=== PATIENT | male | born 1955 | race African-American/Black ===

== ENCOUNTER 2025-04-15 18:15 | Inpatient (IN) | payer MEDICARE, MEDICAID ==
[~2025-04-15] VITALS: Ht 182.9 cm; Wt 79.4 kg
[~2025-04-15 18:15] MED LIST: ABIR250T PO; ACET-2708 MT; APIX5TAB MT; ASPI-1497 MT; ATOR-2 MT; ATROV INH; BACL-141 PO; CLON0.1T MT; DICL100G58 TP; FAMO-135 MT; GABA-290 MT; HYDR12.54 MT; LEVO-65 MT; MULT-1146 MT; SENN-371 MT; VALS160T28 MT
[2025-04-15 20:37] LABS: BASOPHILS % 1.1 % (0.0-2.0); DIFFERENTIAL COMMENT 0; EOSINOPHILS % 2.1 % (0.0-5.0); HEMATOCRIT. 36.3 % (42.0-52.0); HEMOGLOBIN. 11.6 g/dL (14.0-18.0); LYMPHOCYTES % 9.8 % (20.0-50.0); MEAN CORPUSCULAR HEMOGLOBIN 24.1 pg (28.0-32.0); MEAN CORPUSCULAR HGB CONC 31.9 g/dL (31.0-37.0); MEAN CORPUSCULAR VOLUME 75.3 fL (80.0-94.0); MEAN PLATELET VOLUME 8.8 fl (7.4-10.4); MONOCYTES % 2.5 % (2.0-8.0); NEUTROPHILS % 84.5 % (40.0-76.0); PLATELET 416 x1000/uL (130-400); RED BLOOD CELL COUNT 4.82 mill/uL (4.7-6.1); RED CELL DISTRIBUTION WIDTH 17.5 % (11.6-14.6); WHITE BLOOD COUNT 13.8 x1000/uL (4.5-11.0)
[2025-04-15] MEDS: PIPERACILLIN/TAZO 3.375G/50ML 50 ML IV ONE (20:39)
[2025-04-15] MEDS: SODIUM CHLORIDE 0.9% (SEPSIS BOLUS) IV ONE (20:39)
[2025-04-15 20:44] LABS: CHLORIDE 105 mEq/L (98-107); POTASSIUM 3.5 mEq/L (3.5-5.1); SODIUM 139 mEq/L (136-145)
[2025-04-15 20:45] LABS: CALCIUM 9.9 mg/dL (8.7-10.4); CARBON DIOXIDE 26 mEq/L (21-32)
[2025-04-15 20:47] LABS: INR 1.1; PROTHROMBIN TIME 11.8 sec (9.6-11.0)
[2025-04-15 20:50] LABS: GLUCOSE 163 mg/dL (70-105); UREA NITROGEN BLOOD 23 mg/dL (9-23)
[2025-04-15 20:52] LABS: ALANINE AMINOTRANSFERASE 9 IU/L (10-49); ALBUMIN 4.1 g/dL (3.2-4.8); ASPARTATE AMINOTRANSFERASE 14 IU/L (<34); BILIRUBIN DIRECT 0.2 mg/dL (<=3.0); BILIRUBIN TOTAL 0.4 mg/dL (0.1-1.0); PROTEIN TOTAL 8.1 g/dL (6.0-8.3)
[2025-04-15 20:55] LABS: CREATININE 1.7 mg/dL (0.6-1.3)
[2025-04-15 21:02] LABS: LACTIC ACID 2.8 mmol/L (0.4-2.0)
[2025-04-15] MEDS ORDERED: ACETAMINOPHEN 1000MG/100ML 100 ML IV SCH (21:15)
[2025-04-15] MEDS: MORPHINE SULFATE 4 MG/ML INJ (FOR IV/IM USE) IV SCH (21:20)
[2025-04-15] MEDS: GABAPENTIN 300MG CAPSULE PO SCH (21:30)
[2025-04-15] MEDS: METRONIDAZOLE 500 MG PREMIX 100 ML IV ONE (22:08)
[2025-04-16] VITALS (69 sets, daily range): BP systolic 55–151; BP diastolic 29–103; PULSE 87–127; RESP 11–29; TEMP 36.5–38.9; O2SAT 93–100
[2025-04-16] MEDS ORDERED: MORPHINE SULFATE 2 MG/ML INJ (NOT FOR IM USE) IV PRN (00:45)
[2025-04-16] MEDS: METOCLOPRAMIDE HCL 10MG/2ML VIAL IV SCH (00:55)
[2025-04-16] MEDS: SODIUM CHLORIDE 0.9% 1,000 ML IV NR (00:57)
[2025-04-16] MEDS ORDERED: ACETAMINOPHEN 325MG TABLET PO PRN (01:00)
[2025-04-16] MEDS ORDERED: NALOXONE HCL 0.4MG/ML VIAL IV PRN ×2 (01:00)
[2025-04-16] MEDS ORDERED: DOCUSATE SODIUM 100MG CAPSULE PO PRN (01:00)
[2025-04-16] MEDS ORDERED: MAGNESIUM/ALUMINUM HYDROXIDE/SIMETHICONE 30ML UDC PO PRN (01:00)
[2025-04-16] MEDS: MIDODRINE HCL 5MG TABLET PO SCH (01:22)
[2025-04-16] MEDS: MORPHINE SULFATE 4 MG/ML INJ (FOR IV/IM USE) IV PRN (03:44)
[2025-04-16] MEDS: DEXT 5%/0.45% NACL 1000ML 1,000 ML IV SCH (03:55)
[2025-04-16] MEDS ORDERED: GABA-1180 PO (04:45)
[2025-04-16] MEDS ORDERED: MSCON15 PO (04:45)
[2025-04-16] MEDS ORDERED: GLIP5TAB22 PO (04:45)
[2025-04-16] MEDS ORDERED: [UNRECOGNIZED DRUG - CODE] PO (04:45)
[2025-04-16] MEDS ORDERED: HYDR-4009 PO (04:45)
[2025-04-16] MEDS ORDERED: ACETAMINOPHEN 1000MG/100ML 100 ML IV ONE (05:15)
[2025-04-16] MEDS: ACETAMINOPHEN 1000MG/100ML 100 ML IV NR (05:23)
[2025-04-16 06:17] LABS: BASOPHILS % 1.5 % (0.0-2.0); DIFFERENTIAL COMMENT 0; EOSINOPHILS % 1.3 % (0.0-5.0); HEMATOCRIT. 33.7 % (42.0-52.0); HEMOGLOBIN. 10.9 g/dL (14.0-18.0); LYMPHOCYTES % 15.9 % (20.0-50.0); MEAN CORPUSCULAR HEMOGLOBIN 24.2 pg (28.0-32.0); MEAN CORPUSCULAR HGB CONC 32.3 g/dL (31.0-37.0); MEAN CORPUSCULAR VOLUME 74.9 fL (80.0-94.0); MEAN PLATELET VOLUME 9.1 fl (7.4-10.4); MONOCYTES % 9.9 % (2.0-8.0); NEUTROPHILS % 71.4 % (40.0-76.0); PLATELET 333 x1000/uL (130-400); RED CELL DISTRIBUTION WIDTH 17.1 % (11.6-14.6); WHITE BLOOD COUNT 9.4 x1000/uL (4.5-11.0)
[2025-04-16 06:38] LABS: CHLORIDE 103 mEq/L (98-107); POTASSIUM 3.2 mEq/L (3.5-5.1); SODIUM 136 mEq/L (136-145)
[2025-04-16 06:39] LABS: CALCIUM 8.7 mg/dL (8.7-10.4); CARBON DIOXIDE 22 mEq/L (21-32)
[2025-04-16 06:44] LABS: CREATININE 1.7 mg/dL (0.6-1.3); GLUCOSE 140 mg/dL (70-105); TRIGLYCERIDE 76 mg/dL (0-150); UREA NITROGEN BLOOD 24 mg/dL (9-23)
[2025-04-16 06:45] LABS: LDL CHOLESTEROL 30 mg/dL (5-100)
[2025-04-16 06:46] LABS: CHOLESTEROL 72 mg/dL (<200); HDL CHOLESTEROL 25 mg/dL (>55); T4 FREE 0.96 ng/dL (0.89-1.76)
[2025-04-16 06:47] LABS: THYROID STIMULATING HORMONE 1.18 uIU/mL (0.55-4.78)
[2025-04-16 06:48] LABS: IRON 17 ug/dL (65-175)
[2025-04-16] MEDS: NOREPINEPHRINE 8MG/250ML PMX 250 ML IV PRN (07:09)
[2025-04-16 07:21] LABS: TOTAL IRON BINDING CAPACITY 394 ug/dl (250-425)
[2025-04-16] MEDS ORDERED: VASOPRESSIN 20 UNIT in SODIUM CHLORIDE 0.9% 99 ML IV PRN (07:30)
[2025-04-16] MEDS: ASPIRIN 81MG TABLET PO SCH (08:14)
[2025-04-16] MEDS: GABAPENTIN 300MG CAPSULE PO SCH (08:14)
[2025-04-16] MEDS: ACETAMINOPHEN 325MG TABLET PO PRN (08:15)
[2025-04-16] MEDS: ENOXAPARIN 40MG/0.4ML SYR SUBCUT SCH (08:15)
[2025-04-16] MEDS: PIPERACILLIN/TAZO 3.375G/50ML 50 ML IV SCH (08:17)
[2025-04-16] MEDS ORDERED: MIDODRINE HCL 5MG TABLET PO SCH (09:00)
[2025-04-16] MEDS: PNEUMOCOCCAL 20-VAL CONJ-DIP CRM 0.5ML IM ONE (09:10)
[2025-04-16] MEDS: KCL 20MEQ/100ML PREMIX 100 ML IV SCH (11:40)
[2025-04-16 12:26] LABS: PHOSPHORUS 4.2 mg/dL (2.5-4.9)
[2025-04-16] MEDS: VANCOMYCIN 1.5GM/250ML IV SCH (14:25)
[2025-04-16] MEDS ORDERED: ESCI-7 MT (17:18)
[2025-04-16] MEDS: ATORVASTATIN CALCIUM 40MG TABLET PO SCH (21:32)
[2025-04-17] VITALS (45 sets, daily range): BP systolic 83–149; BP diastolic 39–137; PULSE 81–111; RESP 10–27; TEMP 36.4–36.8; O2SAT 97–100
[2025-04-17 05:50] LABS: HEMATOCRIT 28.8 % (42.0-52.0); HEMOGLOBIN 9.3 g/dL (14.0-18.0); MEAN CORPUSCULAR HGB CONC 32.3 g/dL (31.0-37.0); MEAN CORPUSCULAR VOLUME 74.5 fL (80.0-94.0); PLATELET 253 x1000/uL (130-400); RED BLOOD CELL COUNT 3.86 mill/uL (4.7-6.1); RED CELL DISTRIBUTION WIDTH 17.1 % (11.6-14.6); WHITE BLOOD COUNT 14.1 x1000/uL (4.5-11.0)
[2025-04-17 06:04] LABS: CHLORIDE 109 mEq/L (98-107); SODIUM 137 mEq/L (136-145)
[2025-04-17 06:05] LABS: CARBON DIOXIDE 23 mEq/L (21-32)
[2025-04-17 06:06] LABS: CALCIUM 8.6 mg/dL (8.7-10.4)
[2025-04-17 06:10] LABS: GLUCOSE 155 mg/dL (70-105)
[2025-04-17 06:11] LABS: UREA NITROGEN BLOOD 15 mg/dL (9-23)
[2025-04-17 06:13] LABS: PHOSPHORUS 1.9 mg/dL (2.5-4.9)
[2025-04-17 06:44] LABS: POTASSIUM 2.8 mEq/L (3.5-5.1)
[2025-04-17] MEDS: POTASSIUM CHLORIDE 20MEQ TABLET SR PO NR (08:55)
[2025-04-17] MEDS: MAGNESIUM OXIDE 400MG TABLET PO SCH (08:55)
[2025-04-17] MEDS: POTASSIUM PHOSPHATE 30 MMOL in DEXT 5% WATER 490 ML IV NR (09:10)
[2025-04-17] MEDS: MAGNESIUM 2 G PREMIX 50 ML IV NR (11:43)
[2025-04-17] MEDS: MORPHINE SULFATE 4 MG/ML INJ (FOR IV/IM USE) IV PRN (11:43)
[2025-04-17] MEDS: VANCOMYCIN 1G PREMIX 200 ML IV SCH (11:44)
[2025-04-17 12:27] LABS: POTASSIUM 3.2 mEq/L (3.5-5.1)
[2025-04-17] MEDS: GABAPENTIN 300MG CAPSULE PO SCH (14:02)
[2025-04-17] MEDS: LACTATED RINGERS 1,000 ML IV SCH (14:02)
[2025-04-17] MEDS ORDERED: *PATIENT'S OWN MEDICATION STORAGE XX SCH (15:30)
[2025-04-17] MEDS: VANCOMYCIN PR SCH (18:00)
[2025-04-17] MEDS: NS PR SCH (18:00)
[2025-04-17] MEDS: VANCOMYCIN 125MG/2.5ML ORAL SYR PO SCH (18:00)
[2025-04-17] MEDS: HYDROCODONE/ACETAMINOPHEN 5/325MG TABLET PO PRN (22:42)
[2025-04-18] VITALS: BP 122/71; PULSE 80; RESP 18; TEMP 36.4; O2SAT 97
[2025-04-18 04:00] VITALS: BP 158/68; PULSE 80; RESP 17; TEMP 36.1; O2SAT 95
[2025-04-18 06:43] LABS: CARBON DIOXIDE 25 mEq/L (21-32); CHLORIDE 109 mEq/L (98-107); POTASSIUM 3.4 mEq/L (3.5-5.1); SODIUM 139 mEq/L (136-145)
[2025-04-18 06:44] LABS: CALCIUM 9.4 mg/dL (8.7-10.4)
[2025-04-18 06:48] LABS: DIFFERENTIAL COMMENT 0; EOSINOPHILS % 4.1 % (0.0-5.0); HEMATOCRIT 31.6 % (42.0-52.0); HEMATOCRIT. 31.6 % (42.0-52.0); HEMOGLOBIN 10.1 g/dL (14.0-18.0); HEMOGLOBIN. 10.1 g/dL (14.0-18.0); LYMPHOCYTES % 11.8 % (20.0-50.0); MEAN CORPUSCULAR HEMOGLOBIN 23.7 pg (28.0-32.0); MEAN CORPUSCULAR HGB CONC 31.9 g/dL (31.0-37.0); MEAN CORPUSCULAR VOLUME 74.3 fL (80.0-94.0); MEAN PLATELET VOLUME 9.4 fl (7.4-10.4); MONOCYTES % 5.5 % (2.0-8.0); NEUTROPHILS % 77.6 % (40.0-76.0); PLATELET 233 x1000/uL (130-400); RED BLOOD CELL COUNT 4.25 mill/uL (4.7-6.1); RED CELL DISTRIBUTION WIDTH 17.6 % (11.6-14.6); WHITE BLOOD COUNT 11.4 x1000/uL (4.5-11.0)
[2025-04-18 06:49] LABS: CREATININE 0.7 mg/dL (0.6-1.3); GLUCOSE 121 mg/dL (70-105); UREA NITROGEN BLOOD 5 mg/dL (9-23)
[2025-04-18 06:51] LABS: PHOSPHORUS 1.6 mg/dL (2.5-4.9)
[2025-04-18 08:00] VITALS: BP 150/92; PULSE 65; RESP 17; TEMP 36.6; O2SAT 97
[2025-04-18] MEDS: CITALOPRAM HYDROBROMIDE 10MG TABLET PO SCH (09:44)
[2025-04-18] MEDS: PANTOPRAZOLE SODIUM 40 MG/VIAL IV SCH (09:44)
[2025-04-18 12:00] VITALS: BP 128/60; PULSE 84; RESP 19; TEMP 36.2; O2SAT 92
[2025-04-18] MEDS: POTASSIUM PHOSPHATE 30 MMOL in DEXT 5% WATER 490 ML IV SCH (12:52)
[2025-04-18] MEDS ORDERED: NON FORMULARY MED XX SCH (13:45)
[2025-04-18] MEDS: IRON SUCROSE COMPLEX 100 MG/5 ML ML IV SCH (15:15)
[2025-04-18 16:00] VITALS: BP 126/47; PULSE 83; RESP 18; TEMP 35.9; O2SAT 96
[2025-04-18] MEDS ORDERED: POTASSIUM CHLORIDE 20 MEQ in DEXT 5% WATER 90 ML IV ONE (18:00)
[2025-04-18] MEDS ORDERED: KCL 20MEQ/100ML PREMIX 100 ML IV SCH (18:30)
[2025-04-18 20:00] VITALS: BP 95/56; PULSE 97; RESP 18; TEMP 35.8; O2SAT 97
[2025-04-18] MEDS ORDERED: POTASSIUM PHOSPHATE 10 MMOL in DEXT 5% WATER 246.6667 ML IV SCH (20:00)
[2025-04-18 20:29] LABS: HEMATOCRIT 34.6 % (42.0-52.0); HEMOGLOBIN 10.8 g/dL (14.0-18.0); MEAN CORPUSCULAR HEMOGLOBIN 23.7 pg (28.0-32.0); MEAN CORPUSCULAR HGB CONC 31.1 g/dL (31.0-37.0); MEAN CORPUSCULAR VOLUME 76.1 fL (80.0-94.0); PLATELET 229 x1000/uL (130-400); RED BLOOD CELL COUNT 4.54 mill/uL (4.7-6.1); RED CELL DISTRIBUTION WIDTH 17.6 % (11.6-14.6); WHITE BLOOD COUNT 10.3 x1000/uL (4.5-11.0)
[2025-04-18 20:33] LABS: CHLORIDE 105 mEq/L (98-107); POTASSIUM 3.4 mEq/L (3.5-5.1); SODIUM 136 mEq/L (136-145)
[2025-04-18 20:34] LABS: CARBON DIOXIDE 20 mEq/L (21-32)
[2025-04-18 20:39] LABS: GLUCOSE 141 mg/dL (70-105); UREA NITROGEN BLOOD < 5 mg/dL (9-23)
[2025-04-18] MEDS ORDERED: VANCOMYCIN 750MG PMX (XELLIA) 150 ML IV SCH (21:00)
[2025-04-19] VITALS: BP 114/66; PULSE 81; TEMP 36.3
[2025-04-19 04:00] VITALS: BP 101/67; PULSE 80; RESP 18; TEMP 36.4; O2SAT 98
[2025-04-19 06:57] LABS: BASOPHILS % 2.4 % (0.0-2.0); DIFFERENTIAL COMMENT 0; EOSINOPHILS % 8.5 % (0.0-5.0); HEMATOCRIT. 30.2 % (42.0-52.0); HEMOGLOBIN. 9.8 g/dL (14.0-18.0); LYMPHOCYTES % 19.1 % (20.0-50.0); MEAN CORPUSCULAR HGB CONC 32.5 g/dL (31.0-37.0); MEAN PLATELET VOLUME 9.4 fl (7.4-10.4); MONOCYTES % 7.7 % (2.0-8.0); NEUTROPHILS % 62.3 % (40.0-76.0); PLATELET 230 x1000/uL (130-400); RED BLOOD CELL COUNT 4.08 mill/uL (4.7-6.1); RED CELL DISTRIBUTION WIDTH 17.2 % (11.6-14.6); WHITE BLOOD COUNT 8.7 x1000/uL (4.5-11.0)
[2025-04-19 07:01] LABS: CHLORIDE 110 mEq/L (98-107); POTASSIUM 3.2 mEq/L (3.5-5.1); SODIUM 141 mEq/L (136-145)
[2025-04-19 07:02] LABS: CALCIUM 9.1 mg/dL (8.7-10.4); CARBON DIOXIDE 24 mEq/L (21-32)
[2025-04-19 07:07] LABS: GLUCOSE 109 mg/dL (70-105); UREA NITROGEN BLOOD 6 mg/dL (9-23)
[2025-04-19 07:09] LABS: PHOSPHORUS 3.5 mg/dL (2.5-4.9)
[2025-04-19 07:17] LABS: CREATININE 1.5 mg/dL (0.6-1.3)
[2025-04-19 08:00] VITALS: BP 119/62; PULSE 89; RESP 17; TEMP 36.3; O2SAT 98
[2025-04-19] MEDS: POTASSIUM CHLORIDE 20MEQ/PACKET PO SCH (08:48)
[2025-04-19 12:00] VITALS: BP 119/62; PULSE 88; RESP 18; TEMP 36.3
[2025-04-19 16:00] VITALS: BP 145/67; PULSE 85; RESP 18; TEMP 36.7; O2SAT 98
[2025-04-19] MEDS ORDERED: NALOXONE HCL 0.4MG/ML VIAL IV PRN (19:45)
[2025-04-19 20:00] VITALS: BP 151/80; PULSE 83; RESP 18; TEMP 35.3; O2SAT 97
[2025-04-19 20:36] LABS: HEMATOCRIT 32.8 % (42.0-52.0); HEMOGLOBIN 10.4 g/dL (14.0-18.0); MEAN CORPUSCULAR HEMOGLOBIN 23.7 pg (28.0-32.0); MEAN CORPUSCULAR HGB CONC 31.6 g/dL (31.0-37.0); MEAN CORPUSCULAR VOLUME 74.9 fL (80.0-94.0); PLATELET 252 x1000/uL (130-400); RED BLOOD CELL COUNT 4.38 mill/uL (4.7-6.1); RED CELL DISTRIBUTION WIDTH 17.5 % (11.6-14.6); WHITE BLOOD COUNT 8.5 x1000/uL (4.5-11.0)
[2025-04-19 20:41] LABS: POTASSIUM 4.1 mEq/L (3.5-5.1)
[2025-04-19 20:43] LABS: CALCIUM 9.1 mg/dL (8.7-10.4)
[2025-04-19 21:02] LABS: CREATININE 2.1 mg/dL (0.6-1.3)
[2025-04-20 04:00] VITALS: BP 184/84; PULSE 87; RESP 18; TEMP 36.7; O2SAT 96
[2025-04-20 06:36] LABS: BASOPHILS % 3.1 % (0.0-2.0); DIFFERENTIAL COMMENT 0; EOSINOPHILS % 11.2 % (0.0-5.0); HEMATOCRIT. 30.2 % (42.0-52.0); HEMOGLOBIN. 9.7 g/dL (14.0-18.0); LYMPHOCYTES % 23.7 % (20.0-50.0); MEAN CORPUSCULAR HEMOGLOBIN 23.9 pg (28.0-32.0); MEAN CORPUSCULAR VOLUME 74.7 fL (80.0-94.0); MEAN PLATELET VOLUME 9.2 fl (7.4-10.4); MONOCYTES % 9.5 % (2.0-8.0); NEUTROPHILS % 52.5 % (40.0-76.0); PLATELET 230 x1000/uL (130-400); RED BLOOD CELL COUNT 4.04 mill/uL (4.7-6.1); RED CELL DISTRIBUTION WIDTH 17.4 % (11.6-14.6); WHITE BLOOD COUNT 7.6 x1000/uL (4.5-11.0)
[2025-04-20] MEDS: CLONIDINE 0.1MG TABLET PO PRN (06:36)
[2025-04-20 07:00] LABS: POTASSIUM 4.1 mEq/L (3.5-5.1)
[2025-04-20 07:06] LABS: CREATININE 2.2 mg/dL (0.6-1.3)
[2025-04-20 08:00] VITALS: BP 122/56; PULSE 70; RESP 18; TEMP 36.1; O2SAT 96
[2025-04-20 11:47] LABS: CLARITY URINE CLEAR (CLEAR); COLOR URINE YELLOW (YELLOW); GLUCOSE URINE NEGATIVE (NEGATIVE); KETONES URINE NEGATIVE (NEGATIVE); LEUKOCYTE ESTERASE URINE NEGATIVE (NEGATIVE); NITRITE URINE NEGATIVE (NEGATIVE); OCCULT BLOOD URINE NEGATIVE (NEGATIVE); PROTEIN URINE NEGATIVE (NEGATIVE); SPECIFIC GRAVITY URINE 1.005 (1.005-1.030); UROBILINOGEN URINE 0.2 E.U./dL (0.2-1.0)
[2025-04-20 12:00] VITALS: BP 127/74; PULSE 83; RESP 18; TEMP 36.4; O2SAT 96
[2025-04-20] MEDS: FAMOTIDINE 20MG/2ML VIAL IV SCH (12:39)
[2025-04-20 15:28] VITALS: PULSE 70; RESP 18
[2025-04-20] MEDS: IPRATROPIUM/ALBUTEROL 0.5-3(2.5)MG/3ML NEB HHN PRN (15:28)
[2025-04-20 16:00] VITALS: BP 141/71; PULSE 72; RESP 18; TEMP 36.3; O2SAT 98
[2025-04-20 18:45] LABS: CREATINE KINASE 57 IU/L (46-171)
[2025-04-20 20:00] VITALS: BP 163/73; PULSE 70; RESP 18; TEMP 36.5; O2SAT 99
[2025-04-21 06:54] LABS: HEMATOCRIT. 26.8 % (42.0-52.0); HEMOGLOBIN. 8.8 g/dL (14.0-18.0); MEAN CORPUSCULAR HEMOGLOBIN 24.3 pg (28.0-32.0); MEAN CORPUSCULAR HGB CONC 32.7 g/dL (31.0-37.0); MEAN CORPUSCULAR VOLUME 74.2 fL (80.0-94.0); PLATELET 210 x1000/uL (130-400); RED BLOOD CELL COUNT 3.61 mill/uL (4.7-6.1); RED CELL DISTRIBUTION WIDTH 17.8 % (11.6-14.6); WHITE BLOOD COUNT 6.8 x1000/uL (4.5-11.0)
[2025-04-21 06:56] LABS: DIFFERENTIAL COMMENT 1
[2025-04-21 07:02] LABS: CALCIUM 8.9 mg/dL (8.7-10.4); POTASSIUM 4.4 mEq/L (3.5-5.1)
[2025-04-21 07:08] LABS: CREATININE 2.4 mg/dL (0.6-1.3)
[2025-04-21 08:00] VITALS: BP 149/70; PULSE 68; RESP 18; TEMP 36.3; O2SAT 97
[2025-04-21 08:20] LABS: PLATELET ESTIMATE NORMAL
[2025-04-21 08:21] LABS: ANISOCYTOSIS 1+
[2025-04-21 12:00] VITALS: BP 166/51; PULSE 66; RESP 18; TEMP 36.3; O2SAT 97
[2025-04-21] MEDS ORDERED: LIP40 PO (15:19)
[2025-04-21] MEDS ORDERED: ASPI-1160 PO (15:19)
[2025-04-21] MEDS ORDERED: GABA-1180 PO (15:19)
[2025-04-21] MEDS ORDERED: VANJ5 PO (15:19)
[2025-04-21] MEDS ORDERED: CITA10TA16 PO (15:19)
[2025-04-21 16:00] VITALS: BP 169/76; PULSE 77; RESP 18; TEMP 36.3; O2SAT 100
[2025-04-21] MEDS: SODIUM CHLORIDE 0.45% 1,000 ML IV SCH (16:33)
[2025-04-21 20:00] VITALS: BP 151/101; PULSE 101; RESP 18; TEMP 36.7; O2SAT 100
[2025-04-21] MEDS: CLONIDINE 0.1MG TABLET PO NR (23:24)
[2025-04-22] VITALS (7 sets, daily range): BP systolic 126–164; BP diastolic 59–80; PULSE 58–69; RESP 16–18; TEMP 36.3–36.9; O2SAT 94–99
[2025-04-22] MEDS: GUAIFENESIN 200MG/10ML SUGAR FREE UDC PO PRN (08:39)
[2025-04-22 12:37] LABS: CREATINE KINASE 47 IU/L (46-171)
[2025-04-24 10:07] LABS: COMPLEMENT C3 133 mg/dL (82-167); COMPLEMENT C4 17 mg/dL (12-38)
[2025-04-26 15:10] LABS: ANTI-NUCLEAR ANTIBODIES DIRECT Negative (Negative)
== END 2025-04-22 14:45 | DRG 871 ==
LOC: ER 18:15 → EDBEDREQ 20:43 → 5WST 21:54 → EDBEDREQ 21:57 → ENRESERV 22:08 → CVICU 04-16 06:25 → 5WST 04-17 15:13
PROVIDERS: ADMIT Hospitalist; ATTEND Hospitalist
PROC: 05HY33Z Insertion of Infusion Device into Upper Vein, Percutaneous Approach (ICD-10-PCS; principal; 2025-04-16)
PROC: B54MZZA Ultrasonography of Right Upper Extremity Veins, Guidance (ICD-10-PCS; 2025-04-16)
DX: A41.9 Sepsis, unspecified organism (principal); J96.01 Acute respiratory failure with hypoxia; N17.0 Acute kidney failure with tubular necrosis; R65.21 Severe sepsis with septic shock; C79.51 Secondary malignant neoplasm of bone; E87.20 Acidosis, unspecified; G82.20 Paraplegia, unspecified; M48.56XA Collapsed vertebra, not elsewhere classified, lumbar region, initial encounter for fracture; M79.605 Pain in left leg; M79.604 Pain in right leg; C61 Malignant neoplasm of prostate; K21.9 Gastro-esophageal reflux disease without esophagitis; D50.9 Iron deficiency anemia, unspecified; G89.4 Chronic pain syndrome; I10 Essential (primary) hypertension; K52.9 Noninfective gastroenteritis and colitis, unspecified; E87.6 Hypokalemia; E86.0 Dehydration; E83.39 Other disorders of phosphorus metabolism; F32.A Depression, unspecified; E78.00 Pure hypercholesterolemia, unspecified; R73.9 Hyperglycemia, unspecified; G89.3 Neoplasm related pain (acute) (chronic); E83.42 Hypomagnesemia; R53.81 Other malaise; R26.9 Unspecified abnormalities of gait and mobility; Z88.1 Allergy status to other antibiotic agents; Z79.01 Long term (current) use of anticoagulants; Z79.82 Long term (current) use of aspirin; Z79.899 Other long term (current) drug therapy; Z85.07 Personal history of malignant neoplasm of pancreas; Z86.73 Personal history of transient ischemic attack (TIA), and cerebral infarction without residual deficits; Z87.891 Personal history of nicotine dependence
CPT/HCPCS: 36415; 36573; 71045; 74176; 76770; 80048; 80061; 80076; 80202; 81003; 82270; 82550; 82962; 83540; 83550; 83605; 83735; 84100; 84132; 84145; 84153; 84439; 84443; 85025; 85027; 86038; 86160; 87015; 87045; 87427; 87449; 87493; 93005; 93970; 94070; 94640; 97110; 97116; 97163; 97166; 97530; 97535; 99285; A4606; A6449; C1725; J1308; J1650; J2270; J2310; J2470; J2543; J2765; J3370; J3475; J3480; J3490; J7030; J7060; J7120; J0131

== ENCOUNTER 2025-04-22 14:53 | Inpatient (IN) | payer MEDICARE, MEDICAID ==
[~2025-04-22] VITALS: Ht 182.9 cm; Wt 82.3 kg
[~2025-04-22 14:53] MED LIST changes: -ABIR250T PO; -ACET-2708 MT; +ASPI-1160 PO; -ATROV INH; +CITA10TA16 PO; -CLON0.1T MT; +GABA-1180 PO; -GABA-290 MT; +GLIP5TAB22 PO; +HYDR-4009 PO; -LEVO-65 MT; +LIP40 PO; +MSCON15 PO; +VANJ5 PO; +[UNRECOGNIZED DRUG - CODE] PO
[2025-04-22] MEDS ORDERED: ACETAMINOPHEN 650MG/20.3ML UDC PO PRN (16:15)
[2025-04-22] MEDS ORDERED: MAGNESIUM/ALUMINUM HYDROXIDE/SIMETHICONE 30ML UDC PO PRN (16:15)
[2025-04-22 16:48] VITALS: BP 146/55; PULSE 64; RESP 18; TEMP 35.9
[2025-04-22] MEDS ORDERED: *PATIENT'S OWN MEDICATION STORAGE XX SCH (17:15)
[2025-04-22] MEDS: SODIUM CHLORIDE 0.45% 1,000 ML IV SCH (18:31)
[2025-04-22] MEDS: VANCOMYCIN 125MG/2.5ML ORAL SYR PO SCH (18:33)
[2025-04-22] MEDS: ACETAMINOPHEN 325MG TABLET PO PRN (18:34)
[2025-04-22 20:00] VITALS: BP 151/67; PULSE 78; RESP 18; TEMP 35.6; O2SAT 99
[2025-04-22] MEDS: ATORVASTATIN CALCIUM 40MG TABLET PO SCH (21:18)
[2025-04-22] MEDS: GABAPENTIN 300MG CAPSULE PO SCH (21:19)
[2025-04-22] MEDS ORDERED: NALOXONE HCL 0.4MG/ML VIAL IV PRN (21:30)
[2025-04-22] MEDS: HYDROCODONE/ACETAMINOPHEN 5/325MG TABLET PO PRN (21:35)
[2025-04-23] MEDS: GUAIFENESIN 200MG/10ML SUGAR FREE UDC PO PRN (03:16)
[2025-04-23] MEDS: VANCOMYCIN 125MG/2.5ML ORAL SYR PO SCH (06:03)
[2025-04-23 07:45] LABS: HEMATOCRIT. 26.2 % (42.0-52.0); HEMOGLOBIN. 8.6 g/dL (14.0-18.0); MEAN CORPUSCULAR HEMOGLOBIN 24.5 pg (28.0-32.0); MEAN CORPUSCULAR HGB CONC 32.7 g/dL (31.0-37.0); MEAN CORPUSCULAR VOLUME 74.9 fL (80.0-94.0); MEAN PLATELET VOLUME 8.3 fl (7.4-10.4); PLATELET 246 x1000/uL (130-400); RED BLOOD CELL COUNT 3.49 mill/uL (4.7-6.1); RED CELL DISTRIBUTION WIDTH 17.3 % (11.6-14.6); WHITE BLOOD COUNT 6.4 x1000/uL (4.5-11.0)
[2025-04-23 07:51] LABS: CHLORIDE 109 mEq/L (98-107); POTASSIUM 4.1 mEq/L (3.5-5.1); SODIUM 142 mEq/L (136-145)
[2025-04-23 07:52] LABS: DIFFERENTIAL COMMENT 1
[2025-04-23 07:53] LABS: CALCIUM 8.8 mg/dL (8.7-10.4); CARBON DIOXIDE 26 mEq/L (21-32)
[2025-04-23 07:58] LABS: CREATININE 2.1 mg/dL (0.6-1.3); GLUCOSE 90 mg/dL (70-105); UREA NITROGEN BLOOD 26 mg/dL (9-23)
[2025-04-23 07:59] LABS: ALANINE AMINOTRANSFERASE < 7 IU/L (10-49)
[2025-04-23 08:00] VITALS: BP 165/75; PULSE 59; RESP 18; TEMP 36.8; O2SAT 98
[2025-04-23 08:00] LABS: ALBUMIN 3.2 g/dL (3.2-4.8); ASPARTATE AMINOTRANSFERASE 11 IU/L (<34); BILIRUBIN TOTAL 0.2 mg/dL (0.1-1.0); PREALBUMIN 15.7 mg/dl (10.0-40.0); PROTEIN TOTAL 5.9 g/dL (6.0-8.3)
[2025-04-23] MEDS: ENOXAPARIN 30MG/0.3ML SYR SUBCUT SCH (08:58)
[2025-04-23] MEDS: CITALOPRAM HYDROBROMIDE 10MG TABLET PO SCH (08:58)
[2025-04-23] MEDS: FAMOTIDINE 20MG/2ML VIAL IV SCH (08:58)
[2025-04-23] MEDS: ASPIRIN 81MG TABLET PO SCH (08:58)
[2025-04-23] MEDS: CLONIDINE 0.1MG TABLET PO PRN (09:03)
[2025-04-23 11:51] LABS: ANISOCYTOSIS 1+; HYPOCHROMASIA 1+; MICROCYTOSIS 2+; PLATELET ESTIMATE NORMAL
[2025-04-23] MEDS: HYDRALAZINE HCL 10MG TABLET PO SCH (14:58)
[2025-04-23 20:00] VITALS: BP 154/78; PULSE 69; RESP 18; TEMP 36.3; O2SAT 98
[2025-04-24 08:00] VITALS: BP 181/80; PULSE 74; RESP 20; TEMP 35.9; O2SAT 98
[2025-04-24 09:12] LABS: CHLORIDE 109 mEq/L (98-107); POTASSIUM 4.1 mEq/L (3.5-5.1); SODIUM 142 mEq/L (136-145)
[2025-04-24 09:14] LABS: CALCIUM 9.5 mg/dL (8.7-10.4); CARBON DIOXIDE 27 mEq/L (21-32)
[2025-04-24 09:15] VITALS: BP 171/84; PULSE 80; O2SAT 98
[2025-04-24 09:18] LABS: IRON 42 ug/dL (65-175)
[2025-04-24 09:19] LABS: CREATININE 1.8 mg/dL (0.6-1.3); GLUCOSE 96 mg/dL (70-105); PROTEIN TOTAL 6.2 g/dL (6.0-8.3); UREA NITROGEN BLOOD 25 mg/dL (9-23)
[2025-04-24 09:20] LABS: ALANINE AMINOTRANSFERASE < 7 IU/L (10-49); ALBUMIN 3.6 g/dL (3.2-4.8)
[2025-04-24 09:21] LABS: ASPARTATE AMINOTRANSFERASE 11 IU/L (<34); BILIRUBIN TOTAL 0.2 mg/dL (0.1-1.0); THYROID STIMULATING HORMONE 1.12 uIU/mL (0.55-4.78); TOTAL IRON BINDING CAPACITY 287 ug/dl (250-425)
[2025-04-24 09:22] LABS: FERRITIN 405 ng/mL (22-322); FOLIC ACID (FOLATE) SERUM 7.53 ng/mL (>5.38)
[2025-04-24 09:23] LABS: VITAMIN B12 SERUM 631 pg/mL (211-911)
[2025-04-24 10:00] VITALS: BP 144/70; PULSE 71; O2SAT 97
[2025-04-24 18:28] VITALS: PULSE 84; RESP 18
[2025-04-24] MEDS: IPRATROPIUM/ALBUTEROL 0.5-3(2.5)MG/3ML NEB HHN PRN (18:28)
[2025-04-24 20:00] VITALS: BP 161/66; PULSE 65; RESP 19; TEMP 36.4; O2SAT 98
[2025-04-25 08:00] VITALS: BP 162/76; PULSE 67; RESP 20; TEMP 36.7; O2SAT 97
[2025-04-25] MEDS: FERROUS SULFATE 325MG TABLET PO SCH (08:47)
[2025-04-25 20:00] VITALS: BP 141/68; PULSE 65; RESP 18; TEMP 36.3; O2SAT 98
[2025-04-26] MEDS: VANCOMYCIN 125MG/2.5ML ORAL SYR PO SCH (00:05)
[2025-04-26 07:08] LABS: HEMATOCRIT. 28.1 % (42.0-52.0); MEAN CORPUSCULAR HEMOGLOBIN 23.9 pg (28.0-32.0); MEAN CORPUSCULAR HGB CONC 32.1 g/dL (31.0-37.0); MEAN CORPUSCULAR VOLUME 74.3 fL (80.0-94.0); MEAN PLATELET VOLUME 8.3 fl (7.4-10.4); PLATELET 264 x1000/uL (130-400); RED BLOOD CELL COUNT 3.78 mill/uL (4.7-6.1); RED CELL DISTRIBUTION WIDTH 17.7 % (11.6-14.6); WHITE BLOOD COUNT 5.8 x1000/uL (4.5-11.0)
[2025-04-26 07:25] LABS: CARBON DIOXIDE 27 mEq/L (21-32); CHLORIDE 107 mEq/L (98-107); POTASSIUM 3.8 mEq/L (3.5-5.1); SODIUM 142 mEq/L (136-145)
[2025-04-26 07:26] LABS: DIFFERENTIAL COMMENT 1
[2025-04-26 07:31] LABS: CREATININE 1.3 mg/dL (0.6-1.3); GLUCOSE 84 mg/dL (70-105)
[2025-04-26 07:32] LABS: UREA NITROGEN BLOOD 18 mg/dL (9-23)
[2025-04-26 08:00] VITALS: BP 171/75; PULSE 63; RESP 20; TEMP 36; O2SAT 97
[2025-04-26 18:06] LABS: PLATELET ESTIMATE NORMAL
[2025-04-26 18:07] LABS: ANISOCYTOSIS 1+; HYPOCHROMASIA 1+; MICROCYTOSIS 2+
[2025-04-26 20:00] VITALS: BP 137/70; PULSE 64; RESP 19; TEMP 36.3; O2SAT 97
[2025-04-26] MEDS: NYSTATIN 100,000 UNITS/GM CREAM 15GM TOP SCH (21:00)
[2025-04-27 08:00] VITALS: BP 130/60; PULSE 71; RESP 19; TEMP 36.2; O2SAT 98
[2025-04-27] MEDS: ERGOCALCIFEROL 50000UNITS CAPSULE PO SCH (09:26)
[2025-04-27 20:00] VITALS: BP 133/66; PULSE 75; RESP 18; TEMP 36.6; O2SAT 98
[2025-04-28] MEDS: HYDROCODONE/ACETAMINOPHEN 5/325MG TABLET PO PRN (00:53)
[2025-04-28 08:00] VITALS: BP 134/77; PULSE 60; RESP 19; TEMP 36.4; O2SAT 97
[2025-04-28 20:00] VITALS: BP 156/67; PULSE 87; RESP 19; TEMP 36.3; O2SAT 99
[2025-04-29 06:14] LABS: CHLORIDE 107 mEq/L (98-107); POTASSIUM 3.8 mEq/L (3.5-5.1); SODIUM 142 mEq/L (136-145)
[2025-04-29 06:15] LABS: CALCIUM 9.5 mg/dL (8.7-10.4); CARBON DIOXIDE 24 mEq/L (21-32)
[2025-04-29 06:20] LABS: CREATININE 1.3 mg/dL (0.6-1.3); GLUCOSE 89 mg/dL (70-105); UREA NITROGEN BLOOD 16 mg/dL (9-23)
[2025-04-29 06:31] LABS: HEMATOCRIT. 29.1 % (42.0-52.0); HEMOGLOBIN. 9.3 g/dL (14.0-18.0); MEAN CORPUSCULAR HEMOGLOBIN 24.6 pg (28.0-32.0); MEAN CORPUSCULAR VOLUME 76.6 fL (80.0-94.0); MEAN PLATELET VOLUME 8.8 fl (7.4-10.4); PLATELET 274 x1000/uL (130-400); RED CELL DISTRIBUTION WIDTH 18.1 % (11.6-14.6); WHITE BLOOD COUNT 6.1 x1000/uL (4.5-11.0)
[2025-04-29 06:32] LABS: DIFFERENTIAL COMMENT 1
[2025-04-29 08:00] VITALS: BP 158/79; PULSE 70; RESP 18; TEMP 36.7; O2SAT 99
[2025-04-29] MEDS: VANCOMYCIN 125MG/2.5ML ORAL SYR PO SCH (09:14)
[2025-04-29 12:58] LABS: ANISOCYTOSIS 2+; MICROCYTOSIS 1+; PLATELET ESTIMATE NORMAL
[2025-04-29 14:35] LABS: CLARITY URINE CLEAR (CLEAR); COLOR URINE YELLOW (YELLOW); GLUCOSE URINE NEGATIVE (NEGATIVE); KETONES URINE NEGATIVE (NEGATIVE); LEUKOCYTE ESTERASE URINE NEGATIVE (NEGATIVE); NITRITE URINE NEGATIVE (NEGATIVE); OCCULT BLOOD URINE NEGATIVE (NEGATIVE); PROTEIN URINE NEGATIVE (NEGATIVE); SPECIFIC GRAVITY URINE 1.016 (1.005-1.030); UROBILINOGEN URINE 0.2 E.U./dL (0.2-1.0)
[2025-04-29 20:00] VITALS: BP 169/93; PULSE 80; RESP 19; TEMP 37.1; O2SAT 98
[2025-04-30 04:20] VITALS: BP 160/70; PULSE 64; RESP 18; O2SAT 99
[2025-04-30 08:00] VITALS: BP 144/82; PULSE 71; RESP 18; TEMP 36.8; O2SAT 99
[2025-04-30 20:00] VITALS: BP 135/75; PULSE 64; RESP 18; TEMP 36.5; O2SAT 98
[2025-05-01 06:57] LABS: HEMATOCRIT. 29.8 % (42.0-52.0); HEMOGLOBIN. 9.6 g/dL (14.0-18.0); MEAN CORPUSCULAR HEMOGLOBIN 24.2 pg (28.0-32.0); MEAN CORPUSCULAR HGB CONC 32.3 g/dL (31.0-37.0); MEAN CORPUSCULAR VOLUME 74.9 fL (80.0-94.0); MEAN PLATELET VOLUME 8.9 fl (7.4-10.4); PLATELET 304 x1000/uL (130-400); RED BLOOD CELL COUNT 3.98 mill/uL (4.7-6.1); RED CELL DISTRIBUTION WIDTH 17.7 % (11.6-14.6); WHITE BLOOD COUNT 4.5 x1000/uL (4.5-11.0)
[2025-05-01 07:06] LABS: CHLORIDE 106 mEq/L (98-107); POTASSIUM 4.1 mEq/L (3.5-5.1); SODIUM 141 mEq/L (136-145)
[2025-05-01 07:07] LABS: CARBON DIOXIDE 26 mEq/L (21-32)
[2025-05-01 07:08] LABS: CALCIUM 9.8 mg/dL (8.7-10.4)
[2025-05-01 07:09] LABS: DIFFERENTIAL COMMENT 1
[2025-05-01 07:12] LABS: CREATININE 1.1 mg/dL (0.6-1.3); GLUCOSE 100 mg/dL (70-105)
[2025-05-01 07:13] LABS: UREA NITROGEN BLOOD 16 mg/dL (9-23)
[2025-05-01 08:43] VITALS: BP 147/84; PULSE 77; RESP 20; TEMP 36.4; O2SAT 98
[2025-05-01] MEDS ORDERED: NALOXONE HCL 0.4MG/ML VIAL IV PRN (12:30)
[2025-05-01] MEDS: HYDROCODONE/ACETAMINOPHEN 10/325MG TABLET PO PRN (14:23)
[2025-05-01 14:24] VITALS: BP 141/83; PULSE 71
[2025-05-01 14:50] VITALS: BP 138/71; PULSE 74
[2025-05-01 14:57] LABS: ANISOCYTOSIS 1+; MICROCYTOSIS 2+; PLATELET ESTIMATE NORMAL
[2025-05-01 15:00] VITALS: PULSE 71; PULSE 74; RESP 18; TEMP 97.7
[2025-05-01 20:00] VITALS: BP 142/84; PULSE 94; RESP 19; TEMP 36.3; O2SAT 9
[2025-05-02 08:00] VITALS: BP 137/69; PULSE 84; RESP 18; TEMP 36.5; O2SAT 96
[2025-05-02 08:30] VITALS: BP 139/75; PULSE 78
[2025-05-02] MEDS: VANCOMYCIN 125MG/2.5ML ORAL SYR PO SCH (08:32)
[2025-05-02 18:24] VITALS: BP 139/78; PULSE 88
[2025-05-02 20:00] VITALS: BP 128/84; PULSE 84; RESP 19; TEMP 36.4; O2SAT 96
[2025-05-03 08:00] VITALS: BP 130/74; PULSE 92; RESP 18; TEMP 35.6; O2SAT 97
[2025-05-03 20:00] VITALS: BP 106/58; PULSE 78; RESP 18; TEMP 37; O2SAT 98
[2025-05-04 06:58] LABS: CALCIUM 9.5 mg/dL (8.7-10.4); CARBON DIOXIDE 27 mEq/L (21-32); CHLORIDE 105 mEq/L (98-107); POTASSIUM 4.1 mEq/L (3.5-5.1); SODIUM 140 mEq/L (136-145)
[2025-05-04 07:04] LABS: GLUCOSE 93 mg/dL (70-105); UREA NITROGEN BLOOD 18 mg/dL (9-23)
[2025-05-04 08:00] VITALS: BP 107/68; PULSE 88; RESP 20; TEMP 35.9; O2SAT 97
[2025-05-04 20:00] VITALS: BP 109/65; PULSE 90; RESP 17; TEMP 36.3; O2SAT 95
[2025-05-05 08:00] VITALS: BP 144/72; PULSE 78; RESP 20; TEMP 36.2; O2SAT 97
[2025-05-05] MEDS: DIPHENHYDRAMINE 50MG CAPSULE PO PRN (13:40)
[2025-05-05 20:00] VITALS: BP 144/81; PULSE 97; RESP 19; TEMP 36.4; O2SAT 98
[2025-05-06 08:00] VITALS: BP 104/60; PULSE 83; RESP 19; TEMP 36.7; O2SAT 98
[2025-05-06] MEDS: FLUCONAZOLE 150MG TABLET PO NR (18:40)
[2025-05-06] MEDS: NYSTATIN POWDER 15GM TOP SCH (18:41)
[2025-05-06 20:00] VITALS: BP 131/64; PULSE 87; RESP 18; TEMP 36.4; O2SAT 96
[2025-05-07 08:00] VITALS: BP 129/63; PULSE 85; RESP 19; TEMP 36.6; O2SAT 98
[2025-05-07] MEDS: HYDROCORTISONE 1% OINT 28.35GM TOP SCH (14:38)
[2025-05-07 20:00] VITALS: BP 148/62; PULSE 77; RESP 19; TEMP 36.6; O2SAT 97
[2025-05-08 08:00] VITALS: BP 116/75; PULSE 67; RESP 20; TEMP 36.3; O2SAT 97
[2025-05-08 20:00] VITALS: BP 111/63; PULSE 84; RESP 18; TEMP 36.3; O2SAT 97
[2025-05-09 08:00] VITALS: BP 141/65; PULSE 70; RESP 16; TEMP 36.4; O2SAT 96
[2025-05-09 20:00] VITALS: BP 139/74; PULSE 71; RESP 18; TEMP 36.3; O2SAT 98
[2025-05-10 08:00] VITALS: BP 115/66; PULSE 80; RESP 20; TEMP 36.3; O2SAT 96
[2025-05-10 10:18] VITALS: BP 115/66; PULSE 80; TEMP 97.4; O2SAT 96
[2025-05-10 12:52] VITALS: BP 138/73; PULSE 86; RESP 20
== END 2025-05-10 18:16 | disposition home health service (06) | DRG 542 ==
PROVIDERS: ADMIT Physical Medicine & Rehabilitation Spinal Cord Injury Medicine; ATTEND Hospitalist
DX: C79.51 Secondary malignant neoplasm of bone (principal); A41.9 Sepsis, unspecified organism; N17.0 Acute kidney failure with tubular necrosis; R65.21 Severe sepsis with septic shock; K92.2 Gastrointestinal hemorrhage, unspecified; A04.71 Enterocolitis due to Clostridium difficile, recurrent; E87.20 Acidosis, unspecified; F33.1 Major depressive disorder, recurrent, moderate; G82.20 Paraplegia, unspecified; M48.02 Spinal stenosis, cervical region; M48.56XD Collapsed vertebra, not elsewhere classified, lumbar region, subsequent encounter for fracture with routine healing; Z86.19 Personal history of other infectious and parasitic diseases; G89.4 Chronic pain syndrome; E78.5 Hyperlipidemia, unspecified; K21.9 Gastro-esophageal reflux disease without esophagitis; D50.9 Iron deficiency anemia, unspecified; E87.6 Hypokalemia; Z85.46 Personal history of malignant neoplasm of prostate; X58.XXXD Exposure to other specified factors, subsequent encounter; B35.9 Dermatophytosis, unspecified; F17.210 Nicotine dependence, cigarettes, uncomplicated; F41.9 Anxiety disorder, unspecified; I12.9 Hypertensive chronic kidney disease with stage 1 through stage 4 chronic kidney disease, or unspecified chronic kidney disease; L30.9 Dermatitis, unspecified; M47.9 Spondylosis, unspecified; M48.061 Spinal stenosis, lumbar region without neurogenic claudication; N18.9 Chronic kidney disease, unspecified; M54.50 Low back pain, unspecified; R26.9 Unspecified abnormalities of gait and mobility; I95.9 Hypotension, unspecified; D63.8 Anemia in other chronic diseases classified elsewhere; B36.9 Superficial mycosis, unspecified; Z91.81 History of falling; T78.40XA Allergy, unspecified, initial encounter
CPT/HCPCS: 36415; 72141; 72146; 72148; 73521; 80048; 80053; 81003; 82306; 82607; 82728; 82746; 82962; 83036; 83540; 83550; 84134; 84153; 84443; 85025; 92523; 94070; 94640; 97110; 97112; 97116; 97150; 97162; 97166; 97530; 97535; 97542; J1308; J1650; J3370; Q0163